=== PATIENT | female | born 1980 | race Hispanic/Latino ===

== ENCOUNTER 2019-09-27 12:29 | Outpatient (CLI) | payer OTHER | END 2019-09-27 12:30 | disposition home or self-care (01) | LOC: ULT 12:29 | PROVIDERS: ATTEND Internal Medicine Hematology & Oncology | DX: Z51.11 Encounter for antineoplastic chemotherapy (principal); C50.411 Malignant neoplasm of upper-outer quadrant of right female breast; I07.1 Rheumatic tricuspid insufficiency; Z79.899 Other long term (current) drug therapy | CPT/HCPCS: 93306 ==

== ENCOUNTER 2019-09-30 10:55 | Outpatient (CLI) | payer OTHER ==
--- NOTE | 2019-09-30 14:58 | NM ---
WHOLE BODY BONE SCAN: HISTORY: Malignant neoplasm of the upper outer quadrant of the right female breast. RADIOPHARMACEUTICAL: 31.1 mCi technetium-99m MDP injected intravenously. COMPARISON: None FINDINGS: There is symmetric uptake in the bilateral acromioclavicular joints which may represent degenerative change. Uptake is seen on the anterior view in the left shoulder which is nonspecific. There is infiltration of the radiopharmaceutical in the left antecubital fossa. No other abnormal areas of tracer localization seen in the skeleton to suggest metastatic disease. Tracer excretion through the kidneys is within normal limits. IMPRESSION: Questionable abnormal uptake along the left shoulder. This could represent the scapula. A CT of the c hest is recommended to evaluate this region for potential metastatic disease.
== END 2019-09-30 10:56 | disposition home or self-care (01) ==
LOC: NM 10:55
PROVIDERS: ATTEND Internal Medicine Hematology & Oncology
DX: C50.411 Malignant neoplasm of upper-outer quadrant of right female breast (principal)
CPT/HCPCS: 78306; A9503

== ENCOUNTER 2019-10-08 09:08 | Outpatient (CLI) | payer OTHER, SELFPAY ==
[2019-10-08] MEDS ORDERED: Iopamidol-370 76% 500 ML 1 ML ONE (13:57)
--- NOTE | 2019-10-08 15:23 | CT ---
Exam: Left shoulder CT scan with IV contrast: HISTORY: Abnormal bone scan. FINDINGS: The left shoulder is evaluated CT with comparison to the 09/30/2019 bone scan. No evidence for acute f racture or dislocation. There are some A/C joint arthrosis changes which certainly could account for the more superiorly located finding. The more medially noted finding on the bone scan does not macario ve a definitive abnormal CT finding to correlate with that. Visualized lungs appear clear. IMPRESSION: No CT evidence for overt metastasis. A C joint arthrosis. Consider follow-up bone scan, if these areas of abnormality persist or worsen, consideration at that time for follow-up MRI study.
--- NOTE | 2019-10-08 15:32 | CT ---
Exam: Chest, abdomen, and pelvic CT scan with IV contrast: HISTORY: History of breast cancer. Abnormal bone scan in the left shoulder region FINDINGS: 0.3 cm diameter smooth subpleural nodule in the right upper lobe. 2 small pleural nodular densities i nvolving the left major fissure evidence for intrapulmonary lymph nodes. No mediastinal mass or adenopathy. No pleural or pericardial effusion. Liver, gallbladder, pancreas, spleen, adrenal glands are unremarkable. No renal calculi or acute o bstruction. No CT evidence for acute appendicitis 2.2 x 3.8 cm probable left ovarian functional cyst. No abscess, adenopathy, or abnormal fluid collection. IMPRESSION: Small circumscribed right upper lobe subpleural nodule into pleural nodular densities in the left margarita or fissure region evidence for intrapulmonary lymph nodes. No convincing evidence for metastasis. Evidence for left ovarian follicle functional cyst.
== END 2019-10-08 09:09 | disposition home or self-care (01) ==
LOC: MERGE 09:08 → BICCT 09:08
PROVIDERS: ATTEND Internal Medicine Hematology & Oncology
DX: C50.411 Malignant neoplasm of upper-outer quadrant of right female breast (principal); R93.7 Abnormal findings on diagnostic imaging of other parts of musculoskeletal system; R94.5 Abnormal results of liver function studies; N83.02 Follicular cyst of left ovary; M19.012 Primary osteoarthritis, left shoulder
CPT/HCPCS: 71260; 74177; Q9967

== ENCOUNTER 2019-10-11 06:33 | Outpatient (CLI) | payer OTHER ==
[2019-10-11 11:58] LABS: #Basophils 0.1 thou/uL (0.0-0.2); #Eosinphils 0.3 thou/uL (0.0-0.7); #Monocytes 0.6 thou/uL (0.11-0.59); #Neutrophils 6.5 thou/uL (1.40-6.50); %Basophils 0.7 % (0.0-1.0); %Eosinophils 2.7 % (0.0-10.0); %Lymphocytes 28.9 % (21.0-51.0); %Monocytes 5.9 % (0.0-10.0); %Neutrophils 61.8 % (42.0-75.0); Hemoglobin 14.1 g/dL (12.0-16.0); Mean Corpuscular HGB CONC 35.4 g/dL (32.0-36.0); Mean Corpuscular Hemoglobin 31.6 pg (27.0-31.0); Mean Corpuscular Volume 89.2 fL (78.0-98.0); Mean Platelet Volume 9.1 fL (7.4-10.4); Platelet Count 271 thou/uL (130-400); RBC Distribution Width 12.1 % (11.5-14.5); Red Blood Cell (RBC) Count 4.48 mill/uL (4.20-5.40); White Blood Cell (WBC) Count 10.5 thou/uL (4.8-10.8)
[2019-10-11 12:12] LABS: BHCG - Serum Negative (NEGATIVE); Pregs Control Background? CLEAR/WHITE (CLR/WHITE); Pregs Control Bar Appear? YES (CONTROL BAR)
[2019-10-11 12:29] LABS: Anion Gap 11 mmol/L (10-20); BUN (Urea Nitrogen) 11 mg/dL (7.0-18.7); Calc. Creatinine Clearance 0 mL/min (70-130); Calcium 9.6 mg/dL (7.8-10.44); Carbon Dioxide 27 mmol/L (22-29); Chloride 104 mmol/L (98-107); Estimated GFR-MDRD Greater than 90; Glucose 117 mg/dL (70-105); Potassium 4.2 mmol/L (3.5-5.1); Sodium 138 mmol/L (136-145)
== END 2019-10-11 06:34 | disposition home or self-care (01) ==
LOC: LABBT 06:33
PROVIDERS: ATTEND Specialist
DX: Z01.818 Encounter for other preprocedural examination (principal); C50.411 Malignant neoplasm of upper-outer quadrant of right female breast; Z17.1 Estrogen receptor negative status [ER-]
CPT/HCPCS: 80048; 84703; 85025; 93005; 93010

== ENCOUNTER 2019-10-15 08:24 | Day surgery (SDC) | payer OTHER ==
[2019-10-11 10:58] VITALS: BMI 33.0
[2019-10-15] MEDS ORDERED: EPHEDRINE 25 MG/5 ML SYRINGE ONE (09:40)
[2019-10-15] MEDS ORDERED: Dexamethasone 20 MG/5 ML VIAL ONE (09:40)
[2019-10-15] MEDS ORDERED: PHENYLEPHRINE-NS 100 MCG/ML 10 ML SYRINGE ONE (09:40)
[2019-10-15] MEDS ORDERED: Ondansetron PF 4 MG/2 ML Vial ONE (09:40)
[2019-10-15] MEDS ORDERED: PROPOFOL 200 MG/20 ML VIAL ONE (09:40)
[2019-10-15] MEDS ORDERED: Lidocaine 1% PF 5 ML VIAL ONE (09:40)
--- NOTE | 2019-10-15 09:49 | NM ---
NM Lymphoscintigraphy History: Breast cancer Comparison: None. Findings: Patient was brought to the nuclear medicine suite. All questions were answered. Informed co nsent was obtained. Timeout performed. Patient's right breast was prepped and draped in normal sterile fashion. A total of 0.375 mCi technet ium 99m filtered sulfur colloid was instilled into 4 aliquots in the periareolar soft tissues. There is uptake within the right axillary lymph node. Impression: Right axillary uptake.
[2019-10-15] MEDS ORDERED: Acetaminophen 500 MG TAB ONE (10:38)
[2019-10-15] MEDS ORDERED: Ketorolac Tromethamine 30 MG/ML VIAL ONE (10:39)
[2019-10-15] MEDS ORDERED: Fentanyl 100 MCG/2 ML VIAL ONE (11:21)
[2019-10-15] MEDS ORDERED: HYDROmorphone 0.5 MG/0.5 ML SYRINGE ONE (11:22)
[2019-10-15] MEDS ORDERED: Methylene Blue 50 MG/10 ML AMPUL ONE (11:23)
[2019-10-15] MEDS ORDERED: Bupivacaine 0.25% HCL 30 ML VIAL ONE (11:23)
[2019-10-15] MEDS ORDERED: Lidocaine 1% w/Epinephrine 1:100K 20 ML VIAL ONE (11:23)
--- NOTE | 2019-10-15 14:22 | RAD ---
PORTABLE CHEST 1 VIEW: DATE: 10/15/2019. TIME: 1:52 PM. FINDINGS/IMPRESSION: There is a left subclavian Port-A-Cath with tip in the projection of the cavoatrial junction. No lob ar consolidation, pneumothoraces, julio c pulmonary edema, or large effusions are seen. POS: [facility]
--- NOTE | 2019-10-16 02:36 | OP ---
DATE OF PROCEDURE: 10/15/2019 PREOPERATIVE DIAGNOSIS: Right breast cancer. POSTOPERATIVE DIAGNOSIS: Right breast cancer. PROCEDURE PERFORMED: Placement of left subclavian low-profile power compatible MediPort, right sentinel lymph node mapping with right axillary sentinel lymph node biopsy, ultrasound-guided needle localization of right breast cancer, right breast needle localized lumpectomy. ANESTHESIA: General endotracheal. INDICATIONS: The patient is a 39-year-old female. She had presented recently with a palpable mass in the upper outer right breast. It was biopsy proven to be cancer. She was taken to the operating at this time for definitive treatment of this cancer. It is anticipated that she will require chemotherapy. Therefore, MediPort placement is planned as well. DESCRIPTION OF OPERATION: Preoperative lymphoscintigraphy was performed identifying right axillary sentinel lymph nodes. Informed consent was obtained and patient was taken to the operating room, where general anesthesia was obtained with the patient in supine position. Attention was turned first to the MediPort placement. Bilateral chest, breasts, and axilla were prepped with ChloraPrep and draped in sterile fashion. Local anesthetic was infiltrated and large gauge needle was passed under the clavicle into the left subclavian vein on the initial pass. Guidewire was passed through this needle and fluoroscopically confirmed to enter the superior vena cava. Additional local anesthetic was infiltrated and transverse incision was created based on needle insertion site. Subcutaneous pocket was dissected. Introducer dilator was passed over the guidewire. Catheter was passed through the introducer, which was removed in the usual peel-apart fashion. The catheter tip was positioned at the atriocaval junction and trimmed to appropriate length. It was then secured to the locking hub of the MediPort. The port was secured to pectoral fascia with 2 interrupted sutures of 3-0 Prolene. The incision was then closed in layers with 3-0 and 4-0 Monocryl. Dermabond was placed externally. The port was aspirated and flushed with heparinized saline without difficulty. Final x-ray showed good position of the port and catheter. Attention was then turned to the right breast. The right breast had been infiltrated with 3 mL of Lymphazurin before that was prepped and this area was then massaged for 5 minutes. Attention was turned to the axilla. Local anesthetic was infiltrated using a mixture of 1% lidocaine with epinephrine and 0.25% Marcaine. A transverse low axillary incision was created and dissection was carried through skin and subcutaneous tissue into the axilla. The Neoprobe was utilized to guide dissection and identification of the radioactive lymph nodes. I was able to identify two obvious sentinel lymph nodes. The first one was significantly enlarged and was likely the lymph node that I had biopsied previously in my office. This was highly radioactive and blue stained. The second lymph node was much less radioactive, but still obviously involved and was without evidence of blue staining. Both lymph nodes were dissected circumferentially and all investing lymphatics were divided between clamps and 3-0 silk ties. Meticulous hemostasis was obtained. The wound was closed in layers with 3-0 and 4-0 Monocryl and Dermabond was placed externally. Attention was then turned to the breast. Ultrasound was utilized to grisel the area of the malignancy in a grid-type fashion on the skin. A localizing needle was then placed using ultrasound guidance through the malignancy in a medial to lateral fashion. An oblique incision was created just lateral to the nipple, so as to include the localizing wire. Dissection was carried through skin and subcutaneous tissue. Flaps were raised superiorly, inferiorly and medially. Dissection was carried around the wire on the lateral aspect and deep to the wire. Ultrasound was utilized during the surgery to continue to assess the margins of the dissection. The mass was removed intact with the wire. Several sutures were placed for specimen orientation and the specimen was submitted for mammographic evaluation. The mammography revealed that the biopsy clip was present within the lesion. Meticulous hemostasis was obtained with electrocautery. The wound was irrigated with sterile water. The wound was closed in layers with 3-0 and 4-0 Monocryl. Additional local anesthetic was infiltrated into the wound during closure. Dermabond was placed externally. There were no complications. The patient tolerated the procedure well and was taken to recovery room in stable condition. Job ID: [id number]
== END 2019-10-15 15:32 | disposition home or self-care (01) ==
LOC: SDC 08:24 → EEVIPCON 11:00 → SDC 15:32
PROVIDERS: ATTEND Specialist
PROC: 02HV33Z Insertion of Infusion Device into Superior Vena Cava, Percutaneous Approach (ICD-10-PCS; principal; 2019-10-15)
PROC: 07B53ZX Excision of Right Axillary Lymphatic, Percutaneous Approach, Diagnostic (ICD-10-PCS; principal; 2019-10-15)
PROC: 0HBT0ZZ Excision of Right Breast, Open Approach (ICD-10-PCS; principal; 2019-10-15)
DX: D05.11 Intraductal carcinoma in situ of right breast (principal); I10 Essential (primary) hypertension; Z79.899 Other long term (current) drug therapy
CPT/HCPCS: 71045; 76098; 78195; 88307; 88342; A9541; C1788; J0690; J1100; J1170; J1642; J1885; J2001; J2405; J2704; J3010; Q9968; S0020